=== PATIENT | female | born 1955 | race Caucasian/White ===

== ENCOUNTER 2017-08-08 12:21 | Day surgery (SDC) | payer OTHER ==
[~2017-08-08] VITALS: Ht 154.9 cm; Wt 70.3 kg
[2017-08-08 13:40] VITALS: Ht 154.9 cm; Wt 70.3 kg
[2017-08-08] MEDS ORDERED: MELO-216 PO (13:54)
[2017-08-08] MEDS ORDERED: CINNAMON CAP (13:54)
[2017-08-08] MEDS ORDERED: OMEG-135 PO (13:54)
[2017-08-08 13:56] VITALS: BP 134/73; PULSE 81; RESP 18
[2017-08-08] MEDS ORDERED: PROPOFOL 60 ML ONE (14:22)
--- NOTE | 2017-08-08 14:51 | OPPN ---
Date/Time of Note Date/Time of Note DATE: 08/08/17 TIME: 14:49 Proc Note GI Procedure Date 08/08/17 Indication: other (History of colon polyps) Pre-procedure Diagnosis History of colon polyps Post-procedure Diagnosis Impression: Normal colonic mucosa to cecum. Moderate-sized internal hemorrhoids. History of colon polyps. Plan: Follow up as scheduled] High fiber diet Annual hemoccult stool testing [Surveillance colonoscopy in 5 years] . Procedure Performed: Colonoscopy Surgeon JUAN MIGUEL ALEMAN MD See signature line Fleet Technician none Anesthesia Type: MAC Anesthesiologist: LAURA BECKETT Tourniquet Time none EBL none Transfusion required none Biopsy 1: None Grafts/Implants none Tubes/Drains none Complication(s) none Disposition: home Procedure Description After informed consent, with the patient/relatives understanding the procedure, its indications and potential risks and complications, including but not limited to: Allergic reaction, bleeding, perforation, infection, and after all pertinent questions were answered to the patient's satisfaction, the patient/ relatives signed the witnessed informed consent. Following this, premedication was administered slowly IV push under careful cardiovascular and respiratory monitoring with pulse OXIMETRY, automatic blood pressure, and inspector rag sorting. Once the sedative effect was achieved, the patient was placed in the left lateral decubitus position, digital rectal examination was performed. The colonoscope was then introduced and advanced under visual control throughout all segments of the colon including: the rectum, sigmoid, descending colon, splenic flexure, transverse colon, hepatic flexure, ascending colon and finally reaching the cecum which was clearly identified by transillumination, finger indentation and the ileocecal valve. Careful examination of the mucosa of the lower gastrointestinal tract both on insertion as well as withdrawal of the instrument disclosed the following findings: PREPARATION QUALITY: [Adequate], RECTAL EXAM: The anorectal area was visualized examined and digital rectal examination performed with the following findings: No evidence of perirectal disease, no masses. COLONIC MUCOSA: The mucosa of all segments of the colon was carefully examined and showed the following findings: the examined mucosa appears within normal limits. There is no evidence of inflammatory changes, diverticular formation, polyps or neoplasms, vascular malformation, or any other abnormality. Moderate-sized internal hemorrhoids. The instrument was then withdrawn, the patient tolerated the procedure well and was transferred out of the Endoscopy Suite awake and in good condition to continue recovery under observation. Copies To: CC: JUAN MIGUEL ALEMAN MD, MORDO MD Aug 08, 2017 14:51
[2017-08-08 15:26] VITALS: BP 122/77; RESP 18
== END 2017-08-08 18:14 | disposition home or self-care (01) ==
LOC: GIL 12:21
PROVIDERS: ATTEND Internal Medicine Gastroenterology
DX: K64.8 Other hemorrhoids (principal); Z86.010 Personal history of colon polyps